=== PATIENT | female | born 1995 | race Caucasian/White ===

== ENCOUNTER 2016-08-06 17:25 | Emergency (ER) | payer OTHER ==
--- NOTE | 2016-08-06 17:41 | EDPHY ---
H & P Stated Complaint: The Time Seen by Provider: 08/06/16 17:35 HPI/ROS: CHIEF COMPLAINT: Right flank pain x2 days HISTORY OF PRESENT ILLNESS: 20-year-old immunocompetent female complaining of right flank pain for the past 2 days with antecedent dysuria and increased frequency day previous. No fever no chills. No nausea or vomiting. No flu-like symptoms. No incontinence no retention. No saddle anesthesia. No trauma. No falls. No abdominal pain. No radiculopathy. No foot drop PRIMARY CARE PROVIDER:[facility] REVIEW OF SYSTEMS: A ten point review of systems was performed and is negative with the exception of the items mentioned in the HPI PAST MEDICAL & SURGICAL HISTORY: No pertinent medical or surgical history SOCIAL HISTORY: nonsmoker. PHYSICAL EXAM (Prior to examination, patient consented to physical exam, hands were washed and my usual and customary physical exam procedures followed) 1) GENERAL: Well-developed, well-nourished, alert and oriented. Appears nontoxic . 2) HEAD: Normocephalic, atraumatic 3) HEENT: Pupils equal, round, reactive to light bilaterally. Sclera anicteric. Nasopharynx, oropharynx, clear, no lesions. 4) NECK: Full range of motion, no meningeal signs. 5) LUNGS: Clear auscultation bilaterally, no wheezes, no rhonchi, no retractions. 6) HEART: Regular rate and rhythm, no murmur, no heave, no gallop. 7) ABDOMEN: No guarding, no rebound, no focal tenderness, negative McBurney's, negative Rivera's, negative Rovsing's, negative peritoneal sign, 8) MUSCULOSKELETAL: Moving all extremities, no focal areas of tenderness, no obvious trauma. No peripheral edema or discoloration. 9) BACK: Positive right CVA tenderness, no midline vertebral tenderness, no fluctuance, no step-off, no obvious trauma, no visual or palpable abnormality. Patella, Achilles reflexes intact to bilateral strength 5/5 10) SKIN: No rash, no petechiae. DIFFERENTIAL DIAGNOSIS: In no particular order, including but not limited to, fracture, sprain/strain, cauda equina, spinal infectious etiology. MEDICAL DECISION MAKING Patient has been re-evaluated with serial exams was recently at 5:55 p.m.. Discussed her urine results showing positive leukocytes. She has positive CVA tenderness with subjective urinary complaints as well. High clinical suspicion for pyelonephritis. Plan will be treatment with oral antibiotics which I think are appropriate as she is tolerating oral intake, has no comorbidities, I believe her to have decision-making capacity. I had a lengthy discussion with her informed her that should she develop fever, chills, nausea, vomiting she is to return to the ER immediately for re-evaluation. Doubt cauda equina, doubt spinal infectious etiology. I do not think that x-rays or MRI currently indicated as I think the etiology of her symptoms more than likely secondary to acute pyelonephritis. Discussed case Dr. Hector Gtz. - Personal History LMP (Females 10-55): Unknown Current Tetanus/Diphtheria Vaccine: Unsure Current Tetanus Diphtheria and Acellular Pertussis (TDAP): Unsure - Medical/Surgical History Hx Asthma: No Hx Chronic Respiratory Disease: No Hx Diabetes: No Hx Cardiac Disease: No Hx Renal Disease: No Hx Cirrhosis: No Hx Alcoholism: No Hx HIV/AIDS: No Hx Splenectomy or Spleen Trauma: No Other PMH: denies - Social History Smoking Status: Never smoked Constitutional: Initial Vital Signs Temperature (C) 36.4 C 08/06/16 17:30 Heart Rate 54 L 08/06/16 17:30 Respiratory Rate 16 08/06/16 17:30 Blood Pressure 122/64 H 08/06/16 17:30 O2 Sat (%) 98 08/06/16 17:30 O2 Delivery Mode Room Air Allergies/Adverse Reactions: No Known Allergies Allergy (Unverified 08/06/16 17:29) Home Medications: Medication Instructions Recorded Cephalexin [Keflex] 500 mg PO TID 7 Days 08/06/16 oxyCODONE/APAP 5/325 [Percocet 1 tab PO Q6 #10 tab 08/06/16 5/325] Medical Decision Making - Data Points Laboratory Results: 08/06/16 08/06/16 17:39 17:39 Urine Color YELLOW Urine Appearance CLEAR Urine pH 7.0 (5.0-7.5) Ur Specific [place] 1.014 (1.002-1.030) Urine Protein NEGATIVE (NEGATIVE) Urine Ketones NEGATIVE (NEGATIVE) Urine Blood NEGATIVE (NEGATIVE) Urine Nitrate NEGATIVE (NEGATIVE) Urine Bilirubin NEGATIVE (NEGATIVE) Urine Urobilinogen NEGATIVE EU EU (0.2-1.0) Ur Leukocyte Esterase 1+ H (NEGATIVE) Urine RBC 1-3 /hpf /hpf (0-3) Urine WBC 25-50 /hpf H /hpf (0-3) Ur Epithelial Cells TRACE /lpf /lpf (NONE-1+) Urine Mucus TRACE /lpf /lpf (NONE-1+) Urine Glucose NEGATIVE (NEGATIVE) Urine Test NEGATIVE Departure - Departure Disposition: Home, Routine, Self-Care Clinical Impression: Pyelonephritis Condition: Good Instructions: Kidney Infection (ED), Flank Pain (ED) Additional Instructions: Return to the ER immediately if you experience fevers/chills, flu like symptoms , inability to tolerate oral intake, nausea or vomiting, or any other symptoms that concern you. Referrals: [facility],. [Clinic] - 1-2 days without fail Prescriptions: Cephalexin [Keflex] 500 mg PO TID 7 Days oxyCODONE/APAP 5/325 [Percocet 5/325] 1 tab PO Q6 #10 tab
[2016-08-06 17:54] LABS: COLOR YELLOW; LEUKOCYTE ESTERASE,URINE 1+ (NEGATIVE); NITRITE,URINE NEGATIVE (NEGATIVE)
[2016-08-06 17:57] LABS: MUCUS TRACE /lpf (NONE-1+); WBC,URINE 25-50 /hpf (0-3)
[2016-08-06] MEDS ORDERED: CEPHALEXIN 500 MG CAP PO ONE (18:11)
[2016-08-06 18:23] VITALS: BP 128/78; PULSE 70; RESP 14; TEMP 98.4; O2SAT 94
== END 2016-08-06 18:21 | disposition home or self-care (01) ==
DX: N12 Tubulo-interstitial nephritis, not specified as acute or chronic (principal)

== ENCOUNTER → 2016-11-24 | Outpatient (CLI) | payer OTHER | LOC: BRMIMAGING 14:13 | DX: Z13.820 Encounter for screening for osteoporosis (principal); E23.0 Hypopituitarism; F50.00 Anorexia nervosa, unspecified ==

== ENCOUNTER 2017-04-30 01:24 | Emergency (ER) | payer OTHER ==
[2017-04-30 01:32] VITALS: BP 135/92; PULSE 76; RESP 20; TEMP 97.7; O2SAT 100
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
== END 2017-04-30 01:41 ==
DX: S09.90XA Unspecified injury of head, initial encounter (principal); Y09 Assault by unspecified means